=== PATIENT | male | born 1965 | race Caucasian/White ===

== ENCOUNTER 2024-01-28 20:59 | Emergency (ER) | payer MEDICAID, OTHER ==
[~2024-01-28] VITALS: Ht 175.3 cm; Wt 82.0 kg
[~2024-01-28 20:59] MED LIST: ASPI-1497 PO; CARV25TA47 PO; DOXA2TAB2 PO; ENZA40CA PO; FAMO20TA8 PO; FOLI0.8T23 PO; HYDR50TA40 PO; METO-293 PO; NIFE-32 PO; OMEP20TA23 PO; PATI8.4P PO
[2024-01-28 21:41] VITALS: BP 157/84; PULSE 72; RESP 16; TEMP 97.6; O2SAT 99
[2024-01-28] MEDS ORDERED: POLY119P2 MT (22:40)
[2024-01-28] MEDS ORDERED: FEO RC (22:43)
== END 2024-01-29 00:03 | disposition home or self-care (01) ==
LOC: ER 20:59
DX: K59.00 Constipation, unspecified (principal); E11.9 Type 2 diabetes mellitus without complications; I10 Essential (primary) hypertension; Z79.899 Other long term (current) drug therapy
CPT/HCPCS: 74018; 99283